=== PATIENT | female | born 1950 | race Caucasian/White ===

== ENCOUNTER 2018-08-16 17:02 | Emergency (ER) | payer MEDICARE, OTHER ==
[~2018-08-16] VITALS: Ht 167.6 cm; Wt 86.4 kg
[2018-08-16 17:46] VITALS: Ht 167.6 cm; Wt 86.4 kg
[2018-08-16 18:44] LABS: BASOPHILS 0.3 % (0-2); EOSINOPHILS 1.1 % (0-7); HEMATOCRIT 39.6 % (36.0-48.0); HEMOGLOBIN 13.1 g/dL (12-16); IMMATURE GRANULOCYTES 0.2 % (0-5); LYMPHOCYTES 20.2 % (15-50); MCH 29.4 pg (26.0-34.0); MCHC 33.1 g/dL (31.0-37.0); MCV 88.8 fL (80.0-100.0); MEAN PLATELET VOLUME 10.2 fL (7.4-10.4); MONOCYTES 12.8 % (2-11); NEUTROPHILS 65.4 % (40-80); PLATELET COUNT 270 10x3/uL (130-400); RBC 4.46 10x6/uL (4.00-5.40); RDW 15.4 % (11.5-14.5); WBC 6.2 10x3/uL (4.8-10.8)
[2018-08-16 19:00] LABS: APPEARANCE CLEAR (CLEAR); BILIRUBIN NEGATIVE (NEGATIVE); COLOR YELLOW (YELLOW); GLUCOSE NEGATIVE (NEGATIVE); KETONE NEGATIVE (NEGATIVE); NITRITE NEGATIVE (NEGATIVE); PROTEIN NEGATIVE (NEGATIVE); SPECIFIC GRAVITY 1.025 (1.005-1.020); UROBILINOGEN NORMAL (NORMAL)
[2018-08-16 19:05] LABS: ALBUMIN 3.8 g/dL (3.4-5.0); ALKALINE PHOSPHATASE 67 U/L (46-116); ALT (SGPT) 28 U/L (10-68); CALC OSMOLALITY 282 mosm/kg (275-300); CALCIUM 8.9 mg/dL (8.5-10.1); CARBON DIOXIDE 25.2 mmol/L (21.0-32.0); CHLORIDE - SERUM 103 mmol/L (98-107); CREATININE - SERUM 1.1 mg/dL (0.6-1.3); GLUCOSE 102 mg/dL (74-106); POTASSIUM - SERUM 3.8 mmol/L (3.5-5.1); PROTEIN - SERUM 7.4 g/dL (6.4-8.2); SODIUM 141 mmol/L (136-145); UREA NITROGEN 19 mg/dL (7-18); eGFR NON AFRICAN AMERICAN 52 mL/min (90-120)
[2018-08-16 19:14] LABS: CREATINE KINASE 102 UL (21-215); LIPASE 179 U/L (73-393); PRO BNP 50 pg/mL (0-125); THYROID STIMULATING HORMONE 1.65 uIU/mL (0.36-3.74); TROPONIN-I < 0.017 ng/mL (0.000-0.060)
[2018-08-16 22:21] VITALS: BP 122/85
== END 2018-08-16 22:21 | disposition home or self-care (01) ==
LOC: D.ER 17:02
PROVIDERS: Family Medicine
DX: R06.09 Other forms of dyspnea (principal); Z87.39 Personal history of other diseases of the musculoskeletal system and connective tissue; M54.6 Pain in thoracic spine; I12.9 Hypertensive chronic kidney disease with stage 1 through stage 4 chronic kidney disease, or unspecified chronic kidney disease; N18.9 Chronic kidney disease, unspecified

== ENCOUNTER → 2018-09-11 09:07 | Outpatient (CLI) | payer MEDICARE, OTHER ==
[2018-08-16 17:46] VITALS: BMI 30.7
== END | disposition home or self-care (01) ==
LOC: D.HCCARDIO 09:00
DX: I20.9 Angina pectoris, unspecified (principal)

== ENCOUNTER 2019-02-04 10:53 | Outpatient (CLI) | payer MEDICARE, OTHER ==
--- NOTE | ~2019-02-04 | HEMODYNAMI ---
PATIENT:DRE GARCIA MEDICAL RECORD: [id number] : 50 LOCATION:[facility] ADMISSION DATE: 02/04/19 Generatedon:02/04/201913:20 Patient name: DRE GARCIA Patient #: [id number] SSN: : 1950 Date of study: 02/04/2019 Page: Of Hemodynamic Procedure Report Patient Data Patient Demographics Procedure consent was obtained First Name: DRE Gender: Female Last Name: JOSE : 1950 Patient #: [id number] Age: 68 year(s) Race: Unknown Additional ID: [id number] Contact details [address]: [address] [place] [address] State: [place] City: [place] Zip code: [address] Past Medical History Allergies Allergen Reaction Date Comments Reported Other allergy 02/04/2019 [facility] Admission Admission Data Admission Date: 02/04/2019 Admission Time: 10:53 Weight (lbs.): 187.39 Weight (kg.): 85 Lab Results Lab Result Date: 02/04/2019 Lab Result Time: 0:00 Biochemistry Name Units Result Min Max BUN mg/dl 18 --(---*)-- 7 18 Creatinine mg/dl 1.1 --(--*-)-- 0.6 1.3 CBC Name Units Result Min Max Hematocrit % 36.1 *-(----)-- 42 54 Hemoglobin g/dl 12.1 *-(----)-- 13.5 17.5 Procedure Procedure Types Cath Procedure Diagnostic Procedure LHC LHC w/Coronaries Procedure Description Procedure Date Procedure Date: 02/04/2019 Procedure Start Time: 13:10 Procedure End Time: 13:20 Procedure Staff Name Function Dhruv Morrow MD Performing Physician Bruno Whitley RT Monitor Anna Nesbitt RT Scrub Queenie Santana RN Nurse Procedure Data Cath Procedure Fluoroscopy Diagnostic fluoroscopy Total fluoroscopy Time: 2.2 time: 2.2 min min Diagnostic fluoroscopy Total fluoroscopy dose: 591 dose: 591 mGy mGy Contrast Material Contrast Material Type Amount (ml) Isovue 370 36 Entry Location Entry Primary Successful Side Size Upsize Upsize Entry Closure Knowles ccessful Closure Location (Fr) 1 (Fr) 2 (Fr) Remarks Device Remarks Radial Right 6 Fr Mechanical artery Short Compression Estimated blood loss: 5 ml Diagnostic catheters Device Type Used For End Catheter Placement DIAGNOSTIC [place] 110cm 5 Procedure Fr catheter ([id number]) Procedure Complications No complications Procedure Medications Medication Administration Route Dosage 0.9% NaCl I.V. 100 ml/hr Oxygen etCO2 Nasal cannula 2 l/min Lidocaine 2% added to field 20 Heparin Flush Bag added to field 2 bags (1000units/500ml NS) Radial Cocktail added to field 1 syringe (Verapamil 2mg/Nitro 400mcg/Heparin 1500units) Versed I.V. 2 mg Fentanyl I.V. 50 mcg Hemodynamics Rest HGB: 12.1 (g/dl) Heart Rate: 55 (bpm) Pressure Samples Time Site Value (mmHg) Purpose Heart Use Rate(bpm) 13:13 LV 110/-3,10 Snapshot 66 13:13 AO 105/65(83) Pullback 75 13:13 LV 100/2,10 Pullback 75 Gradients Valve Time Site 1 Site 2 Mean SEP/DFP Peak To Heart Use (mmHg) (sec/min) Peak Rate (mmHg) (bpm) Aortic 13:13 LV AO 0 3 0 75 100/2,10 105/65(83) Calculations Valve P-P Mean Valve Index Valve Source Name Gradient Area Flow (cm2) Aortic 0 0 0 0 Snapshots Pre Cath Intra NCS Post Cath Vital Signs Time Heart Resp SPO2 etCO2 NIBP Rhythm Pain Sedation Rate (ipm) (%) (mmHg) (mmHg) Status Level (bpm) 13:01:33 56 16 98 27.7 111/61(84) SB 0 (11) 10(A) , No pain 13:06:30 57 17 98 30 112/59(80) SB 0 (11) 9(A) , No pain 13:10:44 57 13 97 12 96/60(74) SB 0 (11) 9(A) , No pain 13:14:52 62 13 98 37.5 102/57(82) NSR 0 (11) 10(A) , No pain 13:19:01 64 15 96 37.5 93/61(80) NSR 0 (11) 10(A) , No pain Medications Time Medication Route Dose Verified Delivered Reason Notes E ffectiveness by by 13:00:28 0.9% NaCl I.V. 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 2 mg Dhruv Queenie for Cristhian Santana sedation RN 13:05:36 Fentanyl I.V. 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 12::44 Diagnostic Cath status Elective 12::45 Time tracking: Regular hours (M-F 7:00 - 5:00) 12:31:48 Plan of Care:Hemodynamics will remain stable., Cardiac rhythm will remain stable., Comfort level will be maintained., Respiratory function will remain adequate., Patient/ family verbilizes understanding of procedure., Procedure tolerated without complication., Recovers from procedure without complications.. 12:34:24 Patient Weight : 187.39 lbs 12:34:38 Patient allergic to Other allergySUDAFED 12:35:02 Lab Result : BUN 18 mg/dl 12:35:02 Lab Result : Creatinine 1.1 mg/dl 12:35:02 Lab Result : Hematocrit 36.1 % 12:35:02 Lab Result : Hemoglobin 12.1 g/dl 12:45:21 Queenie Santana RN sent for patient. Start room use. 12:53:34 Patient received from Pre/Post Procedure Room to CCL 1 Alert and oriented. Tansferred to table in Supine position. 12:53:36 Warm blankets applied, and elsy hugger turned on for patient comfort. 12:53:36 Correct patient and procedure confirmed by team. 12:53:37 ECG and BP/O2 sat monitors applied to patient. 13:00:21 Vital chart was started 13:00:28 0.9% NaCl 100 ml/hr I.V. was administered by Queenie Santana RN; used for procedure; 13:00:34 Oxygen 2 l/min etCO2 Nasal cannula was administered by Queenie Santana RN; used for procedure; 13:00:41 Lidocaine 2% 20ml vial added to field was administered by Dhruv Morrow MD; for local anesthetic; 13:00:44 Heparin Flush Bag (1000units/500ml NS) 2 bags added to field was administered by Dhruv Morrow MD; used for procedure; 13:00:51 Radial Cocktail (Verapamil 2mg/Nitro 400mcg/Heparin 1500units) 1 syringe added to field was administered by Dhruv Morrow MD; used for procedure; 13:01:57 Baseline sample Acquired. 13:02:01 Rhythm: sinus rhythm 13:02:03 Full Disclosure recording started 13:02:23 H&P Date Dictated: 01/16/2019 Within 30 days and on chart.. 13:02:45 Pre-procedure instructions explained to patient. 13:02:51 Pre-op teaching completed and patient verbalized understanding. 13:03:00 Family in waiting room. 13:03:05 Patient NPO since Midnight. 13:03:13 Is the patient allergic to Iodine/contrast media? No. 13:03:23 Is patient on blood thinner?No 13:03:31 Patient diabetic? No. 13:03:48 HCG/Urine : completed and on chart 13:04:06 HCG/Urine : completed and on chart, not drawn 13:04:11 Patient not . Patient is over age 55. 13:04:19 ----Pre-sedation anethsthesia assessment.---- 13:04:27 Previous problem with sedation/anesthesia? No ? 13:04:32 Snore? Yes 13:04:58 Sleep apnea? Yes 13:05:00 Deviated septum? No 13:05:07 Opens mouth fully? Yes 13:05:10 Sticks out tongue? Yes 13:05:15 Airway obstruction? No ? 13:05:29 Versed 2 mg I.V. was administered by Queenie Max RN; for sedation; 13:05:36 Fentanyl 50 mcg I.V. was administered by Queenie Santana RN; for sedation; 13:05:53 Dentures? Yes IN 13:05:59 Pre procedure: right dorsailis pedis pulse 2+ Normal; easily identifiable; not easily obliterated 13:06:01 Modified Andrade's test Ulnar < 7 seconds 13:06:05 Patient pain scale 0/10 ?. 13:06:10 IV patent on arrival in left forearm with 0.9% NaCl at [facility]. 13:06:14 Lab results completed and on chart. 13:06:17 Right Radial & Right Groin area was prepped with chlora-prep and draped in sterile fashion 13:06:18 Alarms reviewed by R. N. 13:06:18 Sharps counted by scrub and verified by R.N. 13:06:20 Use device set Radial Dx or PCI 13:06:23 ACIST Syringe (26591) opened to sterile field. 13:06:23 Medline Cath Pack ([id number]) opened to sterile field. 13:06:24 Bag Decanter (2002S) opened to sterile field. 13:06:25 ACIST Hand Control (23844) opened to sterile field. 13:06:25 ACIST Manifold (76882) opened to sterile field. 13:06:25 Tegaderm 4 x 4 (1626W) opened to sterile field. 13:06:26 MBrace Wrist Support ([id number]) opened to sterile field. 13:06:27 DIAGNOSTIC WIRE .035 260cm J wire (108622) opened to sterile field. 13:06:28 SHEATH 6FR Slender (04-1060) opened to sterile field. 13:06:34 Physician arrived 13:06:34 --------ALL STOP TIME OUT------ 13:06:34 Final Timeout: patient, procedure, and site verified with staff and physician. All members of the team are in agreement. 13:06:36 Right Radial & Right Groin site verified by team. 13:06:38 Maximum allowable Isovue 300 dose 300ml. Physician notified. (300ml for normal creatinines. For patients with creatinine of 1.7 or higher multiply weight(kg) x 5 divided by creatinine.) 13:06:41 Fire Safety Assessment: A--An alcohol-based skin anteseptic being used preoperatively., C--Open oxygen or nitrous oxide is being used., D--An ESU, laser, or fiber-optic light is being used. 13:06:43 Physical assessment completed. ASA score P 2 - A patient with mild systemic disease as per Dhruv Morrow MD. 13:06:45 Sedation plan: IV Moderate Sedation Medication:Versed, Fentanyl 13:06:52 NEEDLE Cook 21G 4cm Radial (V47859) opened to sterile field. 13:09:38 Zero performed for pressure channel P1 13:10:17 Procedure started. 13:10:26 Local anesthetic to right radial artery with Lidocaine 2% by Dhruv Morrow MD.INITIAL ACCESS ONLY 13:10:34 A 6 Fr Short sheath was inserted into the Right Radial artery 13:11:55 A DIAGNOSTIC [place] 110cm 5 Fr catheter (160708) was advanced over the wire and used for Procedure. 13:13:07 LV gram done using CANDELARIA 13:13:09 Injector settings: Ml/sec: 5, Volume: 15, 13:13:11 LV hemodynamics recorded. 13:13:21 EF : 50 % 13:14:15 LCA angiography performed. 13:15:28 RCA angiography performed. 13:16:40 Catheter removed. 13:16:43 TR BAND Standard ([id number]) opened to sterile field. 13:16:54 Sheath removed intact; hemostasis achieved with Mechanical Compression to the Right Radial artery. 13:16:55 Procedure ended.(Physican Out) 13:17:16 Fluoroscopy time 02.20 minutes. 13:18:05 Fluoroscopy dose: 591 mGy 13:18:05 Flurop Dose total: 591 13:18:14 Contrast amount:Isovue 370 36ml. 13:18:19 Sharps counted by scrub and verified by R.N. 13:19:08 TR band inflated with 11cc of air. 13:19:09 Insertion/operative site no bleeding no hematoma. 13:19:14 Post Procedure Pulses reassessed and unchanged 13:19:16 Post-procedure physical assessment completed. ASA score P 2 - A patient with mild systemic disease as per Dhruv Morrow MD. 13:19:18 Post procedure rhythm: unchanged. 13:19:21 Estimated blood loss: 5 ml 13:19:31 Post procedure instruction explained to patient.Patient verbalizes understanding. 13:19:31 Patient needs reinforcement of post procedure teaching. 13:19:51 Procedure and supply charges have been captured, reviewed, submitted and are correct. 13:19:53 Procedure Complication : No complications 13:19:55 Vital chart was stopped 13:19:56 See physician's report for complete and final results. 13:19:59 Report given to Pre/Post Procedure Room. 13:20:03 Patient transfered to Pre/Post Procedure Room with Stretcher. 13:20:06 Procedure ended. 13:20:06 Full Disclosure recording stopped 13:20:13 End room use (Document Last) Device Usage Item Name Manufacture Quantity Catalog Hospital Part Current Minimal Lot# / Number Charge Number Stock Stock Serial# Code ACIST Acist 1 87351 569496 814226 156236 20 Syringe Medical (75467) Systems Inc Medline Medline 1 [id number] 956221 41634 239755 5 Cath Pack ([id number]) Bag Microtek 1 752774 96901 333774 5 Decanter Medical Inc. () ACIST Hand Acist 1 03460 712398 105088 560612 5 Control Medical (69864) Systems Inc ACIST Acist 1 74507 346635 131474 756599 5 Manifold Medical (91500) Systems Inc Tegaderm 4 3M 1 1626W 618498 212423 135466 5 x 4 (1626W) MBrace Advanced 1 140-0250-00 074497 04970 938120 5 Wrist Vascular Support Dynamics ([id number]) DIAGNOSTIC [facility] [place] 1 773674 786350 185195 547915 30 WIRE .035 260cm J wire (940481) SHEATH 6FR Terumo 1 [id number] 807458 599445 132743 5 Slender (80-1060) NEEDLE Cook Cook Medical 1 [id number] 657227 280470 329182 5 21G 4cm Radial (Q21924) DIAGNOSTIC Terumo 1 40-9953 332575 386113 476443 5 [place] 110cm 5 Fr catheter (437291) TR BAND Terumo 1 [id number] 516186 000144 661577 40 Standard ([id number]) Signature Audit [place] Stage Time Signature Unsigned Intra-Procedure 02/04/2019 Bruno Whitley 1:20:45 PM RT(R) Signatures Monitor : Bruno Whitley RT Signature : Date : Time : [place] [id number] [facility] [address]
[2019-02-04] MEDS ORDERED: PROZAC20 MG PO (11:11)
[2019-02-04] MEDS ORDERED: LEVOTHYROXINE150 MCG PO (11:11)
[2019-02-04] MEDS ORDERED: VITAMIN D250000 UNIT PO (11:12)
[2019-02-04] MEDS ORDERED: BISOPROLOL-HCTZ1 TA5 PO (11:12)
[2019-02-04] MEDS ORDERED: ALDACTONE25 MG PO (11:12)
[2019-02-04] MEDS ORDERED: LEUCOVORIN CALCI5 MG PO (11:13)
[2019-02-04] MEDS ORDERED: NAPROSYN500 MG PO (11:13)
[2019-02-04] MEDS ORDERED: GABAPENTIN100 MG PO (11:13)
[2019-02-04] MEDS ORDERED: OMEPRAZOLE20 M1 PO (11:13)
[2019-02-04] MEDS ORDERED: FOLIC ACID1 MG PO (11:14)
[2019-02-04] MEDS ORDERED: METHOTREXATE2.5 MG PO (11:14)
[2019-02-04] MEDS ORDERED: HYDROXYCHLOROQUINE PO (11:15)
[2019-02-04 11:26] VITALS: BP 115/60; BMI 30.4
[2019-02-04 11:34] LABS: BASOPHILS 0.6 % (0-2); EOSINOPHILS 2.3 % (0-7); HEMATOCRIT 36.1 % (36.0-48.0); HEMOGLOBIN 12.1 g/dL (12-16); IMMATURE GRANULOCYTES 0.3 % (0-5); LYMPHOCYTES 23.3 % (15-50); MCH 29.7 pg (26.0-34.0); MCHC 33.5 g/dL (31.0-37.0); MCV 88.7 fL (80.0-100.0); MEAN PLATELET VOLUME 9.8 fL (7.4-10.4); MONOCYTES 9.3 % (2-11); NEUTROPHILS 64.2 % (40-80); PLATELET COUNT 235 10x3/uL (130-400); RBC 4.07 10x6/uL (4.00-5.40); RDW 15.3 % (11.5-14.5); WBC 6.5 10x3/uL (4.8-10.8)
[2019-02-04 11:52] LABS: ANION GAP 12.7 mmol/L (8-16); CARBON DIOXIDE 25.5 mmol/L (21.0-32.0); CREATININE - SERUM 1.1 mg/dL (0.6-1.3); POTASSIUM - SERUM 4.2 mmol/L (3.5-5.1)
--- NOTE | 2019-02-04 13:40 | NUR ---
2L NC, NO RESP DISTRESS. RIGHT WRIST TR BAND CDI, NO BLEEDING OR HEMATOMA NOTED. NO C/O PAIN OR NAUSEA. VSS. CALL LIGHT WITHIN REACH.
--- NOTE | 2019-02-04 14:10 | NUR ---
RESTING QUIETLY WITH EYES CLOSED. RIGHT WRIST TR BAND CDI, NO BLEEDING OR HEMATOMA NOTED. DENIES ANY NEEDS. VSS. WILL CONTINUE TO MONITOR.
--- NOTE | 2019-02-04 14:30 | NUR ---
4CC OF AIR REMOVED FROM TR BAND WITH NO BLEEDING NOTED. VSS. WILL CONTINUE TO MONITOR.
--- NOTE | 2019-02-04 14:45 | NUR ---
3CC OF AIR REMOVED FROM TR BAND WITH NO BLEEDING NOTED. SIPPING ON DRINK AND EATING SANDWICH WITH NO C/O NAUSEA. VSS. CALL LIGHT WITHIN REACH.
--- NOTE | 2019-02-04 15:00 | NUR ---
3CC OF AIR REMOVED FROM TR BAND WITH NO BLEEDING NOTED.
--- NOTE | 2019-02-04 15:15 | NUR ---
LEFT PIV D/C'D WITH CATHETER INTACT, BAND AID TO SITE. UP TO BEDSIDE TO GET DRESSED. AMBULATED TO RESTROOM.
--- NOTE | 2019-02-04 15:25 | NUR ---
REMAINING AIR REMOVED FROM TR BAND WITH NO BLEEDING NOTED. DRESSING PLACED TO SITE. DISCHARGE INSTRUCTIONS GIVEN, VERBALIZED UNDERSTANDING.
--- NOTE | 2019-02-04 15:35 | NUR ---
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 LEFT FACILITY WITH FAMILY AND ALL PERSONAL BELONGINGS.
== END 2019-02-04 15:35 | disposition home or self-care (01) ==
LOC: D.CATH 10:53
PROVIDERS: ATTEND Internal Medicine Cardiovascular Disease
DX: R07.9 Chest pain, unspecified (principal); I25.10 Atherosclerotic heart disease of native coronary artery without angina pectoris; Z01.812 Encounter for preprocedural laboratory examination